=== PATIENT | female | born 1975 | race Caucasian/White ===

== ENCOUNTER 2018-11-10 17:23 | Emergency (ER) | payer BC ==
--- NOTE | 2018-11-10 17:53 | ER Document Report ---
ED Medical Screen (RME) - General Chief Complaint: Vag Bleeding, +preg <12wks Stated Complaint: VAGINAL BLEEDING Time Seen by Provider: 11/10/18 17:49 Information source: Patient Notes: 42-year-old female presents to ED for pelvic cramping and vaginal bleeding bright red with clots. She states she has been drinking a lot and was planning to go into treatment she stopped drinking on Friday they did a test which came up positive. She states she does not know if her drinking has caused this bleeding and cramping. She states her last menstrual period was October 11 but it was kind of a weird echo. 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 I have greeted and performed a rapid initial assessment of this patient. A comprehensive ED assessment and evaluation of the patient, analysis of test results and completion of medical decision making process will be conducted by an additional ED providers. - Related Data Allergies/Adverse Reactions: No Known Allergies Allergy (Verified 11/10/18 17:50) Physical Exam - Vital signs Vitals: Temp Pulse Resp BP Pulse Ox 98.0 F 60 15 108/83 100 11/10/18 17:27 11/10/18 17:27 11/10/18 17:27 11/10/18 17:27 11/10/18 17:27 Course - Vital Signs Vital signs: Temp Pulse Resp BP Pulse Ox 98.0 F 60 15 108/83 100 11/10/18 17:27 11/10/18 17:27 11/10/18 17:27 11/10/18 17:27 11/10/18 17:27
[2018-11-10 18:36] LABS: ABSOLUTE EOSINOPHILS # (AUTO) 0.1 10^3/uL (0.0-0.6); ABSOLUTE LYMPHOCYTES (AUTO) 1.5 10^3/uL (0.5-4.7); ABSOLUTE MONOCYTES (AUTO) 0.6 10^3/uL (0.1-1.4); ABSOLUTE NEUT (AUTO) 5.3 10^3/uL (1.7-8.2); BASOPHILS % (AUTO) 0.6 % (0-2); EOSINOPHILS % (AUTO) 1.8 % (0-6); HEMATOCRIT 36.7 % (36.0-47.0); HEMOGLOBIN 12.3 g/dL (12.0-15.5); LYMPHOCYTES % (AUTO) 20.1 % (13-45); MEAN CORPUSCULAR HEMOGLOBIN 31.8 pg (27.0-33.4); MEAN CORPUSCULAR HGB CONC 33.5 g/dL (32.0-36.0); MEAN CORPUSCULAR VOLUME 95 fl (80-97); MONOCYTES % (AUTO) 8.4 % (3-13); PLATELET COUNT 195 10^3/uL (150-450); RED BLOOD COUNT 3.86 10^6/uL (3.72-5.28); RED CELL DISTRIBUTION WIDTH 12.8 % (11.5-14.0); SEGMENTED NEUTROPHILS % (AUTO) 69.1 % (42-78); TOTAL CELLS COUNTED % (AUTO) 100 %; WHITE BLOOD COUNT 7.7 10^3/uL (4.0-10.5)
[2018-11-10 18:39] LABS: APPEARANCE,URINE CLEAR; BILIRUBIN,URINE NEGATIVE (NEGATIVE); COLOR,URINE YELLOW; GLUCOSE, URINE NEGATIVE (NEGATIVE); KETONES,URINE NEGATIVE (NEGATIVE); LEUKOCYTE ESTERASE,URINE NEGATIVE (NEGATIVE); NITRITE,URINE NEGATIVE (NEGATIVE); PROTEIN,URINE NEGATIVE (NEGATIVE); URINE SPECIFIC GRAVITY 1.014; UROBILINOGEN,URINE NEGATIVE mg/dL (<2.0)
[2018-11-10 18:57] LABS: ALBUMIN 3.8 g/dL (3.5-5.0); ALKALINE PHOSPHATASE 47 U/L (38-126); ANION GAP 7 (5-19); ASPARTATE AMINO TRANSFERASE 27 U/L (14-36); BILIRUBIN,DIRECT 0.1 mg/dL (0.0-0.4); BILIRUBIN,TOTAL 0.1 mg/dL (0.2-1.3); BLOOD UREA NITROGEN 15 mg/dL (7-20); CALCIUM 9.3 mg/dL (8.4-10.2); CARBON DIOXIDE 27 mmol/L (22-30); CHLORIDE 104 mmol/L (98-107); GLUCOSE 81 mg/dL (75-110); POTASSIUM 4.5 mmol/L (3.6-5.0); TOTAL PROTEIN 6.5 g/dL (6.3-8.2)
[2018-11-10 19:16] LABS: ALCOHOL < 10 mg/dL (NONE DETECTED)
--- NOTE | 2018-11-10 19:25 | ER Document Report ---
ED General - General Chief Complaint: Vaginal Bleeding Stated Complaint: VAGINAL BLEEDING Time Seen by Provider: 11/10/18 17:49 Mode of Arrival: Ambulatory Information source: Patient TRAVEL OUTSIDE OF THE [place] IN LAST 30 DAYS: No - HPI Notes: Patient presents with vaginal bleeding. She also states she had some mild lightheadedness and dizziness. She says yesterday she had some light spotting. Today she felt that the bleeding was heavier and that she had some clots. She states she is concerned she may be . She states she had a light period in October but a normal period in September. She also states that she drinks heavily but has not drank in 4 days. She states she is going to start rehab tomorrow. Patient is also had some abdominal cramping. This is been intermittent and diffuse. Nothing makes it better or worse. It does not radiate. Patient denies any previous abdominal surgeries. She denies any chronic medical problems. - Related Data Allergies/Adverse Reactions: No Known Allergies Allergy (Verified 11/10/18 17:50) Past Medical History - General Information source: Patient Last Menstrual Period: 10/11/18 - Social History Smoking Status: Former Smoker Chew tobacco use (# tins/day): No Frequency of alcohol use: Heavy Drug Abuse: Marijuana Family History: Reviewed & Not Pertinent Patient has suicidal ideation: No Patient has homicidal ideation: No Psychiatric Medical History: Reports: Hx Depression Past Surgical History: Reports: Hx Breast Surgery Review of Systems - Review of Systems Constitutional: Malaise, Weakness. denies: Chills, Fever Cardiovascular: denies: Chest pain, Palpitations Respiratory: denies: Cough, Short of breath Gastrointestinal: Abdominal pain, Nausea -: Yes All other systems reviewed and negative Physical Exam - Vital signs Vitals: Temp Pulse Resp BP Pulse Ox 98.0 F 60 15 108/83 100 11/10/18 17:27 11/10/18 17:27 11/10/18 17:27 11/10/18 17:27 11/10/18 17:27 Interpretation: Normal - General General appearance: Appears well, Alert - HEENT Head: Normocephalic, Atraumatic Eyes: Normal Pupils: PERRL - Respiratory Respiratory status: No respiratory distress Chest status: Nontender Breath sounds: Normal Chest palpation: Normal - Cardiovascular Rhythm: Regular Heart sounds: Normal auscultation Murmur: No - Abdominal Inspection: Normal Distension: No distension Bowel sounds: Normal Tenderness: Nontender Organomegaly: No organomegaly - Back Back: Normal, Nontender - Extremities General upper extremity: Normal inspection, Nontender, Normal color, Normal ROM, Normal temperature General lower extremity: Normal inspection, Nontender, Normal color, Normal ROM, Normal temperature, Normal weight bearing. No: Narendra's sign - Neurological Neuro grossly intact: Yes Cognition: Normal Orientation: AAOx4 Marisol Coma Scale Eye Opening: Spontaneous Whitlash Coma Scale Verbal: Oriented Marisol Coma Scale Motor: Obeys Commands Marisol Coma Scale Total: 15 Speech: Normal Motor strength normal: LUE, RUE, LLE, RLE Sensory: Normal - Psychological Associated symptoms: Normal affect, Normal mood - Skin Skin Temperature: Warm Skin Moisture: Dry Skin Color: Normal Course - Re-evaluation Re-evalutation: 11/10/18 19:24 Patient presents with vaginal bleeding and concerns that she may be . Laboratories are unremarkable. H&H is stable. Vital signs are normal. Patient's patency test is negative. I feel she is stable for discharge. - Vital Signs Vital signs: Temp Pulse Resp BP Pulse Ox 98.0 F 60 15 108/83 100 11/10/18 17:27 11/10/18 17:27 11/10/18 17:27 11/10/18 17:27 11/10/18 17:27 - Laboratory Result Diagrams: 11/10/18 18:20 11/10/18 18:20 Laboratory results interpreted by me: 11/10/18 11/10/18 17:30 18:20 Total Bilirubin 0.1 L Urine Blood SMALL H Discharge - Discharge Clinical Impression: Vaginal bleeding Condition: Stable Disposition: HOME, SELF-CARE Instructions: Vaginal Bleeding ([facility]) Additional Instructions: Please call your family physician as soon as possible to arrange follow-up. Referrals: VALERIY NEGRO MD [[facility]UNITY BASED STAFF] - Follow up in 3-5 days
[2018-11-10] MEDS ORDERED: ONDANSETRON 4 MG TAB.RAPDIS PO ONE (19:31)
[2018-11-10 19:34] VITALS: BP 131/79
== END 2018-11-10 19:36 | disposition home or self-care (01) ==
LOC: ER 17:23
DX: N93.9 Abnormal uterine and vaginal bleeding, unspecified (principal); R42 Dizziness and giddiness; R10.84 Generalized abdominal pain; F12.10 Cannabis abuse, uncomplicated; R53.81 Other malaise; R53.1 Weakness; R11.0 Nausea; Z87.891 Personal history of nicotine dependence; Z32.02 Encounter for pregnancy test, result negative
CPT/HCPCS: 86900; 86901; 36415; 80307; 84702; 85025; 80053; 81001; S0119